=== PATIENT | male | born 1960 | race Caucasian/White ===

== ENCOUNTER 2020-03-05 11:25 | Emergency (ER) | payer OTHER, MEDICAID ==
[~2020-03-05] VITALS: Ht 180.3 cm; Wt 108.9 kg
[~2020-03-05 11:25] MED LIST: ALBUPOW26 XX; ASPI1TAB19 OR; ASPI81CH43; DILT120T8 OR; DILT1TAB4; ESOM20CA; ESOM40CA39 OR; LORA10CA7; NITR0.4S31 SL; PROAIR IN; SIMV10TA73 OR; SIMV40TA96
[2020-03-05 11:37] VITALS: BP 141/88
[2020-03-05] MEDS ORDERED: TETANUS-DIPTH-ACEL PERTUSSIS 0.5ML SYR Tdap IM ONE (12:30)
== END 2020-03-05 12:41 | disposition home or self-care (01) ==
LOC: ER 11:25
DX: S90.811A Abrasion, right foot, initial encounter (principal); W54.0XXA Bitten by dog, initial encounter; Y93.89 Activity, other specified; Y92.89 Other specified places as the place of occurrence of the external cause; Y99.8 Other external cause status
CPT/HCPCS: 90471; 90715

== ENCOUNTER → 2025-01-23 | Outpatient (CLI) | payer OTHER, MEDICAID ==
[~2025-01-23] MED LIST changes: +ALBUTEROL SULF 2.5 MG/0.5ML(0.5%) NEB SOLN ONE; +LORA10CA; -LORA10CA7; +SIMV-268 OR; -SIMV10TA73 OR; +SIMV40TA42; -SIMV40TA96
== END | disposition home or self-care (01) ==
LOC: RT 08:22
PROVIDERS: ATTEND Internal Medicine Pulmonary Disease
DX: J44.9 Chronic obstructive pulmonary disease, unspecified (principal); R05.9 Cough, unspecified; R06.00 Dyspnea, unspecified; Z79.51 Long term (current) use of inhaled steroids
CPT/HCPCS: 94060; 94727; 94729